=== PATIENT | male | born 1990 | race Caucasian/White ===

== ENCOUNTER 2018-05-06 10:51 | Emergency (ER) | payer BC ==
[2018-05-06 11:18] VITALS: BP 141/92
--- NOTE | 2018-05-06 11:45 | UC ---
Back Pain HPI - HPI Summary HPI Summary: Complains of right lower back pain radiating down into right leg. History of chronic back pain. Pain is worse with movement, bending. Better with sitting. Fever, cough, sore throat, CP, N/V/D, abdominal pain, change in urine, change in BM, urinary retention, incontinence. Medical history is current back pain. Denies IV drug use - History of Current Complaint Chief Complaint: UCLowerExtremity Stated Complaint: FOOT AND LEG PAIN Time Seen by Provider: 05/06/18 11:24 Hx Obtained From: Patient Onset/Duration: Sudden Onset Timing: Constant Severity Initially: Moderate Severity Currently: Moderate Pain Intensity: 7 Pain Scale Used: 0-10 Numeric Back Pain: Radiates To - Right leg Character: Sharp Aggravating Factor(s): Movement, Bending Alleviating Factor(s): Rest Associated Signs And Symptoms: Positive: Negative - Allergies/Home Medications Allergies/Adverse Reactions: Allergies Allergy/AdvReac Type Severity Reaction Status Date / Time No Known Allergies Allergy Verified 05/06/18 11:17 Home Medications: Home Medications diphenhydrAMINE HCl [Benadryl Allergy] 25 mg 05/06/18 [History] PMH/Surg Hx/FS Hx/Imm Hx - Surgical History Surgical History: None - Family History Known Family History: Positive: None - Social History Alcohol Use: Occasionally Substance Use Type: None Smoking Status (MU): Never Smoked Tobacco Review of Systems Constitutional: Negative Skin: Negative Eyes: Negative ENT: Negative Respiratory: Negative Cardiovascular: Negative Gastrointestinal: Negative Genitourinary: Negative Motor: Negative Neurovascular: Negative Neurological: Negative Psychological: Negative All Other Systems Reviewed And Are Negative: Yes Physical Exam - Summary Physical Exam Summary: Positive straight leg test on right side. Back nontender to palpation. No deformity, masses noted in spine. PMS intact distally on right lower extremity. Triage Information Reviewed: Yes Appearance: Well-Appearing Vital Signs: Initial Vital Signs Temp 97.7 F 05/06/18 11:15 Pulse 98 05/06/18 11:15 Resp 18 05/06/18 11:15 BP 141/92 05/06/18 11:15 Pulse Ox 97 05/06/18 11:15 Vital Signs Reviewed: Yes Eye Exam: Normal Neck exam: Normal Respiratory Exam: Normal Cardiovascular Exam: Normal Abdominal Exam: Normal Musculoskeletal Exam: Normal Neurological Exam: Normal Psychological Exam: Normal Skin Exam: Normal Back Pain Course/Dx - Course Course Of Treatment: Complains of right lower back pain radiating down into right leg. History of chronic back pain. Pain is worse with movement, bending. Better with sitting. Fever, cough, sore throat, CP, N/V/D, abdominal pain, change in urine, change in BM, urinary retention, incontinence. Medical history is current back pain. Denies IV drug use. Physical exam:Positive straight leg test on right side. Back nontender to palpation. No deformity, masses noted in spine. PMS intact distally on right lower extremity. Diagnosis likely sciatica. Rx for prednisone and valium 5mg x 6 tabs - Differential Dx/Diagnosis Provider Diagnoses: sciatica Discharge - Sign-Out/Discharge Documenting (check all that apply): Patient Departure All imaging exams completed and their final reports reviewed: Yes - Discharge Plan Condition: Stable Disposition: HOME Prescriptions: Diazepam TAB(*) [Valium TAB(*)] 5 mg PO TID PRN 2 Days #5 tab MDD 3 yabs PRN Reason: Pain predniSONE TAB* [Deltasone 20 MG TAB*] 40 mg PO DAILY 5 Days #5 tab Patient Education Materials: Sciatica (ED), Lumbar Radiculopathy (ED), Lower Back Exercises (ED) Forms: *Work Release Referrals: Fortunato Cotter MD [Primary Care Provider] - Chicho Mcneal MD [Medical Doctor] - Additional Instructions: Follow-up with orthopedics Dr. Castro if symptoms persist. - Billing Disposition and Condition Condition: STABLE Disposition: Home
== END 2018-05-06 12:02 | disposition home or self-care (01) ==
LOC: UCEAST 10:51
DX: M54.41 Lumbago with sciatica, right side (principal)
CPT/HCPCS: 99212; G0463

== ENCOUNTER 2018-09-10 13:29 | Emergency (ER) | payer BC ==
--- NOTE | 2018-09-10 14:46 | ED ---
Abdominal Pain/Male - HPI Summary HPI Summary: A 27 y/o male presents to 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 He rates his pain as a 5/10. He also reports some diarrhea and claims that sometimes he feels constipated. He claims that he has a Hx of gastritis. He denies fevers, vomiting or an abdominal SHx. He denies drug use, EtOH use or smoking. He lives alone and reports eating a lot of microwavable food. - History of Current Complaint Chief Complaint: EDAbdPain Stated Complaint: ABD PAIN Time Seen by Provider: 09/10/18 14:41 Hx Obtained From: Patient Onset/Duration: Sudden Onset, Lasting Weeks, Still Present Timing: Constant, Lasting Weeks Severity Initially: Moderate Severity Currently: Moderate Pain Intensity: 5 Pain Scale Used: 0-10 Numeric Location: Epigastric Radiates: No Character: Not Applicable Aggravating Factor(s): Nothing Alleviating Factor(s): Nothing Associated Signs And Symptoms: Positive: Constipation, Diarrhea - Allergies/Home Medications Allergies/Adverse Reactions: Allergies Allergy/AdvReac Type Severity Reaction Status Date / Time No Known Allergies Allergy Verified 09/10/18 10:34 PMH/Surg Hx/FS Hx/Imm Hx Endocrine/Hematology History: Denies: Hx Diabetes Cardiovascular History: Denies: Hx Hypertension, Hx Pacemaker/ICD History: Denies: Hx Renal Disease Sensory History: Denies: Hx Hearing Aid Psychiatric History: Denies: Hx Panic Disorder Infectious Disease History: No Infectious Disease History: Denies: Traveled Outside the [place] in Last 30 Days - Family History Known Family History: Positive: Hypertension, Diabetes - Social History Alcohol Use: Occasionally Substance Use Type: Reports: None Smoking Status (MU): Never Smoked Tobacco Review of Systems Negative: Fever Positive: Abdominal Pain, Diarrhea. Negative: Vomiting All Other Systems Reviewed And Are Negative: Yes Physical Exam - Summary Physical Exam Summary: Appearance: Well appearing, no pain distress Skin: warm, dry, reflects adequate perfusion Head/face: normal Eyes: EOMI, CRISTINA ENT: mucous membranes moist Neck: supple, non-tender Respiratory: CTA, breath sounds present Cardiovascular: RRR, pulses symmetrical Abdomen: non-tender, soft, no reproducible pain, normal bowel sounds, no McBurney's point tenderness. Bowel Sounds: present Musculoskeletal: normal, strength/ROM intact Neuro: normal, sensory motor intact, A&Ox3 Triage Information Reviewed: Yes Vital Signs On Initial Exam: Initial Vitals Temp Pulse Resp BP Pulse Ox 98.3 F 97 16 162/101 96 09/10/18 13:58 09/10/18 13:58 09/10/18 13:58 09/10/18 13:58 09/10/18 13:58 Vital Signs Reviewed: Yes Diagnostics - Vital Signs Vital Signs Temp Pulse Resp BP Pulse Ox 09/10/18 13:58 98.3 F 97 16 162/101 96 - Laboratory Result Diagrams: 09/10/18 15:01 09/10/18 15:01 Lab Statement: Any lab studies that have been ordered have been reviewed, and results considered in the medical decision making process. - Radiology abdomen x-ray Radiology Interpretation Completed By: Radiologist Summary of Radiographic Findings: Fecal stasis. Stool in the rectum and in the right colon. ED provider has reviewed this imaging report. Abdominal Pain Fem Course/Dx - Course Course Of Treatment: Nurse's notes reviewed. Generalized discomfort without focality. History for constipation, confirmed by x-ray. Laboratories benign. Treat symptomatically. Follow-up family DrAnnika - Diagnoses Differential Diagnosis/HQI/PQRI: Bowel Obstruction, Constipation, Diverticulitis , Pancreatitis, Peptic Ulcer Disease Provider Diagnoses: Generalized abdominal pain, Constipation Discharge - Sign-Out/Discharge Documenting (check all that apply): Patient Departure - DC - Discharge Plan Condition: Improved Disposition: HOME Prescriptions: Bisacodyl SUPP* [Dulcolax Supp*] 10 mg SC DAILY PRN #5 supp PRN Reason: Constipation Hyoscyamine Sulfate [Levsin/Sl] 0.125 mg SL Q6H PRN #30 sub PRN Reason: cramping Polyethylene Glycol 3350 BTL* [Miralax] 17 gm PO TID PRN #1 btl PRN Reason: Constipation Patient Education Materials: Constipation (ED), High Fiber Diet (ED) Referrals: Fortunato Cotter MD [Primary Care Provider] - Additional Instructions: Call today to schedule follow-up with your primary care physician. Natural fruit juices such as apple or prune may help. High fiber diet. Return if worse , fever, increased pain or other concerns - Billing Disposition and Condition Condition: IMPROVED Disposition: Home - Attestation Statements Document Initiated by Scribe: Yes Documenting Scribe: Claude Spence Provider For Whom Scribe is Documenting (Include Credential): Parag Vazquez MD Scribe Attestation: I, Claude Spence, scribed for Parag Vazquez MD on 09/10/18 at 1721. Scribe Documentation Reviewed: Yes Provider Attestation: The documentation as recorded by the patriciaibe, Claude Spence accurately reflects the service I personally performed and the decisions made by me, Parag Vazquez MD Status of Scribe Document: Viewed
[2018-09-10] MEDS ORDERED: Famotidine TAB* 20 MG PO ONE (14:49)
[2018-09-10] MEDS ORDERED: Hyoscyamine TAB* 0.125 MG PO ONE (14:49)
[2018-09-10 15:12] LABS: ABS Basophils 0.1 10^3/ul (0-0.2); ABS Eosinophils 0.1 10^3/ul (0-0.6); ABS Lymphocytes 2.6 10^3/ul (1.0-4.8); ABS Monocytes 0.5 10^3/ul (0-0.8); ABS Neutrophils 5.1 10^3/ul (1.5-7.7); ABS Nucleated RBC 0 10^3/ul; Eosinophil % 0.8 %; Hematocrit 45 % (42-52); Hemoglobin 15.3 g/dl (14.0-18.0); Lymphocyte % 31.6 %; Mean Corpuscular HGB Conc 34 g/dl (31-36); Mean Corpuscular Hemoglobin 30 pg (27-31); Mean Corpuscular Volume 87 fL (80-94); Nucleated Red Blood Cells % 0.1; Platelet Count 322 10^3/ul (150-450); Red Blood Count 5.12 10^6/ul (4.00-5.40); Red Cell Distribution Width 12 % (10.5-15); White Blood Count 8.4 10^3/ul (3.5-10.8)
[2018-09-10 15:33] LABS: ALT 23 U/L (7-52); AST 14 U/L (13-39); Albumin 4.7 g/dL (3.2-5.2); Albumin/Globulin Ratio 1.9 (1-3); Alkaline Phosphatase 73 U/L (34-104); Anion Gap 7 mmol/L (2-11); BUN/Creatinine Ratio 15.9 (8-20); Blood Urea Nitrogen 14 mg/dL (6-24); C Reactive Protein 1.36 mg/L (<8.01); CO2 Carbon Dioxide 27 mmol/L (22-32); Calcium 9.6 mg/dL (8.6-10.3); Chloride 106 mmol/L (101-111); EGFR Non-African American 103.1 (>60); Globulin 2.5 g/dL (2-4); Glucose 94 mg/dL (70-100); Potassium 4.3 mmol/L (3.5-5.0); Sodium 140 mmol/L (135-145); Total Protein 7.2 g/dL (6.4-8.9)
[2018-09-10 15:58] VITALS: BP 137/94
== END 2018-09-10 15:58 | disposition home or self-care (01) ==
LOC: ED 13:29
DX: R10.84 Generalized abdominal pain (principal); K59.00 Constipation, unspecified
CPT/HCPCS: 36415; 74018; 80053; 83605; 83690; 85025; 86140; 99283; A9270-GY

== ENCOUNTER 2019-01-07 12:09 | Emergency (ER) | payer BC ==
[2019-01-07 12:19] VITALS: BP 142/87
--- NOTE | 2019-01-07 13:49 | UC ---
Headache HPI - HPI Summary HPI Summary: ONSET YESTERDAY MORNING OF DIFFUSE HEADACHE DESCRIBED A TIGHTNESS/PRESSURE. HE HAS SOME ASSOCIATED PHOTOPHOBIA AND FATIGUE BUT DENIES ANY FEVER, NAUSEA OR VISUAL DISTURBANCES. PATIENT STATES HE IS NOT A HEADACHE PERSON. HAS NOT TAKEN ANY IBUPROFEN. REPORTS HE RECENTLY HAS BEEN WAKING UP FEELING FATIGUED DESPITE HAVING A FULL NIGHT'S SLEEP. NO RECENT COUGH OR URI SYMPTOMS HOWEVER UPON FURTHER QUESTIONING PATIENT ADMITS THAT HE IS CHRONICALLY CONGESTED AND BREATHES THROUGH HIS MOUTH WHEN HE SLEEPS. - History Of Current Complaint Chief Complaint: UCHeadache Stated Complaint: SEVERE HEADACHE Time Seen by Provider: 01/07/19 12:25 Hx Obtained From: Patient Onset/Duration: Gradual Onset, Lasting Days, Still Present Onset Of Symptoms: Gradual Currently Pain Is: Moderate Pain Intensity: 6 Pain Scale Used: 0-10 Numeric Timing: Constant Character: Pressure Location of Headache: Diffuse Aggravating Factor(s): Nothing Allevating Factor(s): Nothing Associated Signs And Symptoms: Positive: Sinus Pressure. Negative: Dizziness, Nausea, Vomiting, Fever, Visual Changes - Allergies/Home Medications Allergies/Adverse Reactions: Allergies Allergy/AdvReac Type Severity Reaction Status Date / Time No Known Allergies Allergy Verified 01/07/19 12:19 Home Medications: Home Medications Aspirin/Acetaminophen/Caffeine [Excedrin Migraine Caplet] 1 each PO DAILY PRN [History Confirmed 01/07/19] PMH/Surg Hx/FS Hx/Imm Hx Previously Healthy: Yes - Surgical History Surgical History: None - Family History Known Family History: Positive: Hypertension, Diabetes - Social History Alcohol Use: Rare Substance Use Type: None Smoking Status (MU): Never Smoked Tobacco Review of Systems All Other Systems Reviewed And Are Negative: Yes Constitutional: Positive: Fatigue Eyes: Positive: Photophobia ENT: Positive: Sinus Congestion Respiratory: Positive: Negative Cardiovascular: Positive: Negative Gastrointestinal: Positive: Negative Neurological: Positive: Headache Physical Exam Triage Information Reviewed: Yes Appearance: Well-Appearing, No Pain Distress, Well-Nourished Vital Signs: Initial Vital Signs Temp 97.3 F 01/07/19 12:14 Pulse 91 01/07/19 12:14 Resp 16 01/07/19 12:14 BP 142/87 01/07/19 12:14 Pulse Ox 97 01/07/19 12:14 Vital Signs Reviewed: Yes Eyes: Positive: Conjunctiva Clear ENT: Positive: Hearing grossly normal, Pharynx normal, Nasal congestion, TMs normal, Sinus tenderness Neck: Positive: Supple, Nontender, No Lymphadenopathy Respiratory Exam: Normal Cardiovascular Exam: Normal Abdomen Description: Positive: Soft Musculoskeletal: Positive: No Edema Neurological: Positive: Alert, Other: - CN II-XII GROSSLY INTACT BILATERALLY. RAPID ALTERNATING MOVEMENTS INTACT. NEG PRONATOR DRIFT. NEG ROMBERG. 5/5 STRENGTH. HEEL TO TEMPLE INTACT BILATERALLY. TANDEM GAIT INTACT. FINGER TO NOSE INTACT. Psychological: Positive: Age Appropriate Behavior Skin: Negative: Rashes Headache Course/Dx - Course Course Of Treatment: DURING THE ENCOUNTER PATIENT WAS FOUND TO HAVE MILD TENDERNESS OVERLYING HIS MAXILLARY SINUSES. HIS VOICE SOUNDED CONGESTED AND WHEN ASKED TO BREATHE THROUGH HIS NARES HE WAS SURPRISED TO FIND THAT HE COULD NOT MOVE MUCH AIR THROUGH EITHER SIDE. 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 HE MAY HAVE CONCURRENT ALLERGY SYMPTOMS WELL. THIS MAY BE CONTRIBUTING TO HIS RECENT HEADACHE AND FATIGUE. WILL TRY A SHORT COURSE OF PREDNISONE WELL A NASAL STEROID AND AN OTC ANTIHISTAMINE DAILY. HAVE ENCOURAGED HIM TO CALL ENT TO SCHEDULE AN APPOINTMENT FOR EVALUATION. - Differential Dx/Diagnosis Provider Diagnosis: Headache, Sinusitis Discharge - Sign-Out/Discharge Documenting (check all that apply): Patient Departure All imaging exams completed and their final reports reviewed: No Studies - Discharge Plan Condition: Stable Disposition: HOME Prescriptions: Fluticasone NASAL SPRAY 50MCG* [Flonase NASAL SPRAY 50MCG*] 2 spray BOTH NARES DAILY #1 btl predniSONE TAB* [Deltasone 20 MG TAB*] 40 mg PO DAILY #10 tab Patient Education Materials: Sinusitis (ED), General Headache (ED) Forms: *Work Release Referrals: Fortunato Cotter MD [Primary Care Provider] - 1 Week Additional Instructions: I SUSPECT THAT YOUR HEADACHE SYMPTOMS MAY BE RELATED TO CHRONIC SINUSITIS. BE SURE TO STAY WELL-HYDRATED. TRY FLONASE 2 SPRAYS IN EACH SIDE OF YOUR NOSE ONCE DAILY AT NIGHT BEFORE YOU GO TO SLEEP. I WOULD ALSO RECOMMEND YOU TAKE AN OTC ANTIHISTAMINE SUCH CLARITIN OR ZYRTEC ONCE DAILY IN THE MORNING TO HELP WITH ANY ALLERGIC COMPONENT TO YOUR SYMPTOMS. WILL ALSO GIVE PREDNISONE ONCE DAILY FOR 5 DAYS WHICH ALSO HELPS WITH ALLERGIC SYMPTOMS WELL OVERALL INFLAMMATION AND SWELLING. YOU WOULD LIKELY BENEFIT FROM ENT EVALUATION. CALL THE NUMBER BELOW TO SCHEDULE AN APPOINTMENT. GO TO THE ED WITHOUT FAIL IF YOU DEVELOP UNEQUAL PUPILS, VISUAL DISTURBANCE, GAIT INSTABILITY, SPEECH DIFFICULTY, NAUSEA/VOMITING, WORSENING HEADACHE, DIZZINESS, CONFUSION, WEAKNESS OR ANY OTHER CONCERNING SYMPTOMS. [facility] [place] [address] [facility] [phone] IBUPROFEN MAX DOSE: 600MG (3 TABS) EVERY 6 HRS OR 800MG (4 TABS) EVERY 8 HRS OR NAPROXEN MAX DOSE: 440MG (2 TABS) EVERY 12 HRS TYLENOL MAX DOSE: 1000MG (2 EXTRA STRENGTH TABS) EVERY 8 HRS OR 650MG (2 REGULAR TABS) EVERY 6 HRS - Billing Disposition and Condition Condition: STABLE Disposition: Home
== END 2019-01-07 13:19 | disposition home or self-care (01) ==
LOC: UCEAST 12:09
DX: R51 Headache (principal); J32.9 Chronic sinusitis, unspecified; R53.83 Other fatigue
CPT/HCPCS: 99212; G0463

== ENCOUNTER 2019-05-14 15:09 | Emergency (ER) | payer BC ==
--- OUTSIDE RECORDS SUMMARY | 2019-05-14 15:15 | XMS REPORT | Continuity of Care Document ---
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 Onset: 11/09/2011 Adult health examination Fortunato Cotter M.D. Onset: 09/07/2011 Social History Type Date Description Comments Sex Unknown ETOH Use Denies alcohol use Tobacco Use Start: Unknown Patient has never smoked Recreational Drug Use Denies Drug Use Exercise Type/Frequency Exercises regularly feels his job is very active Sun Exposure Uses sunscreen Seat Belt/Car Seat Always uses seat belt Allergies, Adverse Reactions, Alerts Description No Known Drug Allergies Medications Description No Active Medications Immunizations CPT Code Status Date Vaccine Reaction Lot # [id number] Given 08/23/2016 Influenza Vac, [place]riv[place], [place] [id number] Given 07/11/2013 DO Not Use Split Influenza Virus [id number] Vaccine 96347 Given 06/06/2011 DO Not Use Split Influenza Virus no reaction noted [id number] Vaccine Vital Signs Date Vital Result Comment 04/27/2019 4:18pm BP Systolic 136 mmHg BP Diastolic 76 mmHg Heart Rate 72 /min Body Temperature 98.1 F Respiratory Rate 16 /min Height 73.5 inches 6'1.50" Weight 214.00 lb BMI (Body Mass Index) 27.8 kg/m2 Right Visual Acuity Distance 20/20 with eyeglasses Left Visual Acuity Distance 20/20 with eyeglasses 09/10/2017 10:26am BP Systolic 124 mmHg BP Diastolic 84 mmHg Heart Rate 84 /min Body Temperature 98.2 F Respiratory Rate 16 /min Height 73.5 inches 6'1.50" Weight 210.25 lb BMI (Body Mass Index) 27.4 kg/m2 Results Test Date Facility Test Result H/L Range Note Ua - Non Micro ([facility]) 04/27/2019 [facility] Appearance clear (607)- - Color yellow Glucose, Urine ([facility]/CTX) negative Bilirubin negative Ketones negative SP Grav 1.025 Blood negative PH 6.5 Protein negative Urobil 0.2 Nitrite negative Leukocytes ([facility]/Centrex) negative Procedures Description No Information Available Medical Devices Description No Information Available Encounters Description No Information Available Assessments Date Code Description Provider 04/27/2019 Z00.00 Encounter for general adult medical Sandeep Melchor examination without abnormal findings 04/27/2019 Z00.00 Encounter for general adult medical CONY Pickett examination without abnormal findings 04/27/2019 Z02.4 Encounter for examination for driving Jessica Melchor license Plan of Treatment Future Appointment(s):05/09/2019 9:30 am - Fortunato Cotter M.D. at [facility]404/27/2019 - Veronika Ghotra, [id number] Encounter for general adult medical examination without abnormal findingsNew Labs:CBC Electronic ([facility] New), Ordered : 04/27/19Comp Metabolic-[facility], Ordered: 04/27/19Lipid Panel-[facility], Ordered: 04/27/19CBC Electronic-[facility], Ordered: Comp Metabolic-[facility], Ordered: 04/27/19Lipid Panel[facility] , Ordered: 04/27/19Ua - Non Micro ([facility]), Ordered: 04/27/19AllNew Medication:No Active Medications -Comments:PCMHMedication Management Patient Understands medications he's taking? Yes Are there Barriers to Adherence? No Has the patient been asked about herbal supplements and therapies, and OTC meds ? Yes Care Plan1. Patient has been queried about patient's goals/ preferences and functional/lifestyle goals at relevant visits. Yes If relevant, describe: N/A2. Treatment goals as explained to the patient: above3. Are there barriers to meeting treatment goals? No If Yes, please describe:4. Self-Management goals as described to the patient: Yes As always, we strongly encourage a healthy diet and making physical activity a part of your every day life. If you have questions about how or where to start, please contact the office. Functional Status Description No Information Available Mental Status Description No Information Available Referrals Description No Information Available
--- OUTSIDE RECORDS SUMMARY | 2019-05-14 15:15 | XMS REPORT | Continuity of Care Document ---
:1990 External Reference #:[id number] Author Name Jessica Melchor Address [address] [place] [address] Care Team Providers Name Role Phone Fortunato Cotter MD - Family Care Team Information Oil Field Tester [phone] Medicine Problems Active Problems Provider Date Disorder [...] Code Status Date Vaccine Reaction Lot # [id number] Given 08/23/2016 Influenza Vac, [place]riv[place], [place] [id number] Given 07/11/2013 DO Not Use Split Influenza Virus [id number] Vaccine 66825 Given 06/06/2011 DO Not Use Split Influenza Virus no reaction noted [id number] Vaccine Vital Signs Date Vital Result Comment [...] BMI (Body Mass Index) 27.4 kg/m2 Results Description No Information Available Procedures Description No Information Available Medical Devices Description No Information Available Encounters Description No Information Available Assessments Date Code Description Provider 04/27/2019 Z00.00 Encounter for general adult medical Katie Sandeep Infante -Mine examination without abnormal findings 04/27/2019 Z00.00 Encounter for general adult medical CONY Pickett examination without abnormal findings Plan of Treatment Future Appointment(s):05/09/2019 9:30 am - Fortunato Cotter M.D. at [id number]/27/2019 - Veronika Ghotra, PAZ00.00 Encounter for general adult medical examination without abnormal findingsNew Labs:CBC Electronic ([facility] New), Ordered : 04/27/19Comp Metabolic-[facility], Ordered: 04/27/19Lipid Panel-[facility], Ordered: 04/27/19Ua - Non Micro ([facility]), Ordered: 04/27/19CBC Electronic-[facility], Ordered: 04/27/19Comp Metabolic-[facility], Ordered: 04/27/19Lipid Panel-[facility], Ordered: 04/27/19AllNew Medication:No Active Medications -Comments:PCMHMedication Management Patient Understands medications he's taking? Yes Are there Barriers to Adherence? No Has the patient been asked about herbal supplements and therapies, and OTC meds? Yes Care Plan1. Patient has been queried about patient's goals/preferences and functional/lifestyle goals at relevant visits. Yes If relevant, describe: N/A2. Treatment goals as explained to the patient: above3. Are there barriers to meeting treatment goals? No If Yes , please describe:4. Self-Management goals as described to [...]
[2019-05-14 15:37] VITALS: BP 148/89
--- NOTE | 2019-05-14 15:46 | UC ---
Throat Pain/Nasal Yazan HPI - HPI Summary HPI Summary: Patient is a 28yo male presenting with c/o headache x4 days and sore throat x1 day. Describes headache as "throbbing all over." States his headache is a constant 8/10 since it began. Notes photophobia. Notes dark room and rest help alleviate pain. He states excedrin always gets rid of his headaches but it has not helped this time. Denies worst headache of his life, but is the longest lasting. Last dose of excedrin was last night. He describes his sore throat as scratchy and admits to ill contacts as work. Denies ear pain, itchy/watery eyes , cough, nasal congestion/discharge, and sinus pain. Denies SOB, wheezing, or difficulty breathing. Denies abdominal pain, n/v/d. Denies urinary symptoms. Denies fever and chills. - History of Current Complaint Chief Complaint: UCRespiratory Stated Complaint: HEADACHE, SORE THROAT Time Seen by Provider: 05/14/19 15:46 Hx Obtained From: Patient Onset/Duration: Gradual Onset, Lasting Days Severity: Moderate Pain Intensity: 8 Pain Scale Used: 0-10 Numeric - Allergies/Home Medications Allergies/Adverse Reactions: Allergies Allergy/AdvReac Type Severity Reaction Status Date / Time No Known Allergies Allergy Verified 01/07/19 12:19 PMH/Surg Hx/FS Hx/Imm Hx - Surgical History Surgical History: None - Family History Known Family History: Positive: None, Hypertension, Diabetes - Social History Alcohol Use: None Substance Use Type: None Smoking Status (MU): Never Smoked Tobacco Review of Systems All Other Systems Reviewed And Are Negative: No Constitutional: Positive: Negative Eyes: Positive: Photophobia. Negative: Blurred Vision, Diplopia ENT: Positive: Sore Throat. Negative: Ear Ache, Nasal Discharge, Sinus Congestion, Sinus Pain/Tenderness Respiratory: Negative: Shortness Of Breath, Cough Cardiovascular: Negative: Palpitations, Chest Pain Gastrointestinal: Positive: Negative. Negative: Abdominal Pain, Vomiting, Diarrhea, Nausea Genitourinary: Positive: Negative. Negative: Dysuria, Frequency, Urgency Neurological: Positive: Headache. Negative: Paresthesia, Numbness Physical Exam Triage Information Reviewed: Yes Appearance: Well-Appearing, No Pain Distress, Well-Nourished Vital Signs: Initial Vital Signs Temp 98.2 F 05/14/19 15:34 Pulse 87 05/14/19 15:34 Resp 18 05/14/19 15:34 BP 148/89 05/14/19 15:34 Pulse Ox 99 05/14/19 15:34 Laboratory Tests 05/14/19 16:05 Group A Strep Rapid Negative Vital Signs Reviewed: Yes Eyes: Positive: Conjunctiva Clear ENT: Positive: TMs normal. Negative: Nasal drainage, TM bulging, TM dull, TM red, Tonsillar swelling, Tonsillar exudate, Hoarse voice Neck exam: Normal Neck: Positive: Supple, Nontender, No Lymphadenopathy Respiratory Exam: Normal Respiratory: Positive: Lungs clear, Normal breath sounds, No respiratory distress Cardiovascular Exam: Normal Cardiovascular: Positive: RRR Neurological Exam: Normal Throat Pain/Nasal Course/Dx - Course Course Of Treatment: Discussed with patient to make sure to stay hydrated and avoid factors that further aggravate your headache. Patient told he may continue to take excedrin migraine as directed for pain relief. Patient directed to follow up with your primary care physician within the next week for elevated blood pressure readings. Patient informed to return or follow up with your primary care physician if his sore throat persists, he experiences a fever, or new symptoms arise. Also informed patient to return or go to the emergency department if headache symptoms worsen, he experiences nausea, vomiting, or changes in vision or balance occur. Patient notes already feeling better since arrival, voiced understanding, and agreed to treatment plan. - Differential Dx/Diagnosis Provider Diagnosis: Pharyngitis, Tension headache Discharge ED - Sign-Out/Discharge Documenting (check all that apply): Patient Departure All imaging exams completed and their final reports reviewed: No Studies - Discharge Plan Condition: Stable Disposition: HOME Patient Education Materials: Pharyngitis (ED), Tension Headache (ED) Forms: *Work Release Referrals: Fortunato Cotter MD [Primary Care Provider] - Additional Instructions: Make sure to stay hydrated and avoid factors that further aggravate your headache. You may continue to take excedrin migraine as directed for pain relief. Follow up with your primary care physician within the next week for elevated blood pressure readings. Return or follow up with your primary care physician if your sore throat persists, you experience a fever, or new symptoms arise. Return or go to the emergency department if headache symptoms worsen, you experience nausea, vomiting, or changes in vision or balance. - Billing Disposition and Condition Condition: STABLE Disposition: Home
[2019-05-14] MEDS ORDERED: Ketorolac *IM* INJ* 60 MG/2 ML VIAL IM ONE (15:56)
== END 2019-05-14 16:38 | disposition home or self-care (01) ==
LOC: UCEAST 15:09
DX: J02.9 Acute pharyngitis, unspecified (principal); G44.209 Tension-type headache, unspecified, not intractable
CPT/HCPCS: 87651; 96372; 99211; G0463; J1885

== ENCOUNTER 2019-08-24 06:32 | Emergency (ER) | payer BC ==
[2019-08-24] MEDS ORDERED: NS 0.9% 1000 ML** 1,000 ML IV ONE (06:44)
[2019-08-24] MEDS ORDERED: Ondansetron INJ* 2 MG/ML VIAL IV ONE (06:44)
--- NOTE | 2019-08-24 06:45 | ED ---
Complex/Multi-Sys Presentation - HPI Summary HPI Summary: Pt. is a 28 y.o male who presents to the ER via EMS for dizziness, weakness, nausea that started just prior to arrival. Pt. states he went to work this morning at [employer] when he started to feel unwell. Pt. states he developed weakness, nausea, diaphoresis. Pt. notes ongoing cough. He notes chronic back pain without change. Pt. notes he did not eat breakfast and only ate a peanut butter sandwich for dinner last night. Pt. denies vomiting, diarrhea, urinary sxs. Denies past hx. Sxs are moderate in severity. No current modifying factors. - History Of Current Complaint Time Seen by Provider: 08/24/19 06:34 Hx Obtained From: Patient - Allergies/Home Medications Allergies/Adverse Reactions: Allergies Allergy/AdvReac Type Severity Reaction Status Date / Time No Known Allergies Allergy Verified 08/24/19 06:45 Home Medications: Home Medications NK [No Home Medications Reported] 08/24/19 [History Confirmed 08/24/19] PMH/Surg Hx/FS Hx/Imm Hx Previously Healthy: Yes Endocrine/Hematology History: Denies: Hx Diabetes Cardiovascular History: Denies: Hx Hypertension, Hx Pacemaker/ICD History: Denies: Hx Renal Disease Sensory History: Denies: Hx Hearing Aid Psychiatric History: Denies: Hx Panic Disorder Infectious Disease History: No Infectious Disease History: Denies: Traveled Outside the [place] in Last 30 Days - Family History Known Family History: Positive: None, Hypertension, Diabetes, Non-Contributory - Social History Occupation: Employed Full-time Lives: With Family Alcohol Use: None Substance Use Type: Reports: None Smoking Status (MU): Never Smoked Tobacco Review of Systems Positive: Chills Eyes: Negative Positive: Ear Ache Cardiovascular: Negative Negative: Palpitations, Chest Pain Positive: Cough. Negative: Shortness Of Breath Positive: Abdominal Pain, Nausea. Negative: Vomiting, Diarrhea Genitourinary: Negative Negative: dysuria Positive: Myalgia Skin: Negative Positive: Weakness. Negative: Syncope All Other Systems Reviewed And Are Negative: Yes Physical Exam Triage Information Reviewed: Yes Vital Signs On Initial Exam: Initial Vitals Temp Pulse Resp BP Pulse Ox 97.5 F 94 16 116/79 100 08/24/19 06:35 08/24/19 06:35 08/24/19 06:35 08/24/19 06:35 08/24/19 06:35 Vital Signs Reviewed: Yes Appearance: Positive: Well-Appearing - Pt. sitting up in bed in NAD. Father present. Skin: Positive: Warm, Dry Head/Face: Positive: Normal Head/Face Inspection Eyes: Positive: Normal, EOMI, CRISTINA ENT: Positive: Pharynx normal, TMs normal, Other - Mouth is dry and lips are chapped.. Negative: Tonsillar swelling, Tonsillar exudate Neck: Positive: Supple Respiratory/Lung Sounds: Positive: Clear to Auscultation, Breath Sounds Present Cardiovascular: Positive: Normal, RRR Abdomen Description: Positive: Nontender, Soft Musculoskeletal: Positive: Normal, Strength/ROM Intact Neurological: Positive: Normal, CN Intact II-III Psychiatric: Positive: Anxious Procedures - Sedation Patient Received Moderate/Deep Sedation with Procedure: No Diagnostics - Vital Signs Vital Signs Temp Pulse Resp BP Pulse Ox 08/24/19 06:35 97.5 F 94 16 116/79 100 - Laboratory Result Diagrams: 08/24/19 06:44 08/24/19 06:44 Lab Statement: Any lab studies that have been ordered have been reviewed, and results considered in the medical decision making process. Complex Multi-Symp Course/Dx Course Of Treatment: Pt. presenting with likely near syncopal episode. Mildy tachycardic. Appears dehydrated on exam. Pt. started on IV fluids. ECG done at 0710 shows a sinus rhythm of 88bpm, normal aixs, appropriate intervals, no STEMI. Labs are unremarkable. U/A negative. CXR negative for acute findings per radiology. Orthostatic VS normal as documented. Pt. ate a bowl of cereal. On re-exam pt. is feeling much better. Will dc home. Advised to increase fluid intake and to eat regular meals and snacks. To f.u with pcp within one week and will return to er if sxs change or worsen. Pt. understands and agrees with plan. - Diagnoses Provider Diagnoses: Near syncope, Dehydration Discharge ED - Sign-Out/Discharge Documenting (check all that apply): Patient Departure - Discharge Plan Condition: Improved Disposition: HOME Patient Education Materials: Dehydration (ED), Near Syncope (ED) Forms: *Work Release Referrals: Fortunato Cotter MD [Primary Care Provider] - Additional Instructions: Please follow up with your PCP for recheck within one week Increase fluids and rest Recommend eating three meals a day with small snacks in between Return to ER if symptoms change or worsen - Billing Disposition and Condition Condition: IMPROVED Disposition: Home - Attestation Statements Provider Attestation: I was available for consultation for this patient. I did not evaluate the patient or participate in any medical decision making or disposition decisions unless I am specifically named in the chart as having consulted on the patient. If I have consulted on the patient, please see my own ED note on the patient encounter. Jroge Faith MD
[2019-08-24 07:11] LABS: ABS Eosinophils 0.1 10^3/ul (0-0.6); ABS Lymphocytes 1.5 10^3/ul (1.0-4.8); ABS Monocytes 0.5 10^3/ul (0-0.8); ABS Neutrophils 8.4 10^3/ul (1.5-7.7); Eosinophil % 1.1 %; Hematocrit 45 % (42-52); Hemoglobin 15.5 g/dL (14.0-18.0); Lymphocyte % 14.2 %; Mean Corpuscular HGB Conc 35 g/dL (31-36); Mean Corpuscular Hemoglobin 30 pg (27-31); Mean Corpuscular Volume 87 fL (80-94); Mean Platelet Volume 7.2 fL (7.4-10.4); Platelet Count 310 10^3/uL (150-450); Red Blood Count 5.16 10^6 /uL (4.18-5.48); Red Cell Distribution Width 12 % (10-15); White Blood Count 10.6 10^3/uL (3.5-10.8)
[2019-08-24 07:29] LABS: Albumin 4.4 g/dL (3.2-5.2); Albumin/Globulin Ratio 1.5 (1-3); BUN/Creatinine Ratio 12.9 (8-20); C Reactive Protein 5.36 mg/L (<8.01); Calcium 9.3 mg/dL (8.6-10.3); EGFR African American 105.7 (>60); EGFR Non-African American 87.3 (>60); Influenza A Molecular NEGATIVE (Negative); Influenza B Molecular NEGATIVE (Negative); Potassium 4.2 mmol/L (3.5-5.0); Total Bilirubin 0.5 mg/dL (0.2-1.0); Total Protein 7.4 g/dL (6.4-8.9)
[2019-08-24 07:54] LABS: Urine Appearance Cloudy; Urine Bilirubin Negative (Negative); Urine Blood Negative (Negative); Urine Color Yellow; Urine Glucose Negative (Negative); Urine Ketones Negative (Negative); Urine Nitrite Negative (Negative); Urine Protein 1+(30 mg/dL) (Negative); Urine Urobilinogen Negative (Negative)
[2019-08-24 07:58] LABS: Urine Bacteria Absent (Absent); Urine Red Blood Cell Trace(0-2/hpf) (Absent); Urine Squamous Epithelial Cell Present (Absent); Urine White Blood Cell Trace(0-5/hpf) (Absent)
[2019-08-24 08:30] VITALS: BP 109/82
== END 2019-08-24 08:29 | disposition home or self-care (01) ==
LOC: ED 06:32
DX: R55 Syncope and collapse (principal); E86.0 Dehydration
CPT/HCPCS: 36415; 71046; 80053; 81003; 81015; 85025; 86140; 87086; 93005; 96361; 96374; 99283; J2405

== ENCOUNTER 2019-10-20 11:07 | Emergency (ER) | payer BC ==
[2019-10-20 11:24] VITALS: BP 128/100
--- NOTE | 2019-10-20 11:52 | UC ---
Back Pain HPI - HPI Summary HPI Summary: PATIENT REPORTS HISTORY OF CHRONIC LOW BACK PAIN AFTER A WORK INJURY 5 YEARS AGO. STATES THAT THE PAIN COMES AND GOES AND HAS NEVER COMPLETELY RESOLVED. HAD X-RAYS DONE HERE IN THE UC AFTER THE INITIAL INJURY AND HAD MILD DJD AND OA BUT HE HAS HAD NO OFFICIAL MEDICAL FOLLOW-UP OR IMAGING SINCE THEN. STATES THAT FOR THE PAST FEW DAYS THE PAIN HAS BEEN GETTING WORSE. NO NEW DISCRETE INJURY. HE IS HAVING DIFFICULTY SLEEPING DUE TO THE PAIN. 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 HE DENIES ANY SADDLE ANESTHESIA OR LOSS OF BOWEL/BLADDER CONTROL. STATES HE HAS INTERMITTENT PARESTHESIAS IN HIS RIGHT LEG BUT THIS HAS BEEN THERE FOR OVER A YEAR. - History of Current Complaint Chief Complaint: UCBackPain Stated Complaint: BACK PAIN Time Seen by Provider: 10/20/19 11:10 Hx Obtained From: Patient Onset/Duration: Gradual Onset, Lasting Days, Still Present Timing: Constant Severity Initially: Moderate Severity Currently: Moderate Pain Intensity: 6 Pain Scale Used: 0-10 Numeric Back Pain: Is Discrete @ - LOW BACK Character: Sharp Aggravating Factor(s): Movement Alleviating Factor(s): Rest, Position Associated Signs And Symptoms: Negative: Swelling, Redness, Weakness, Numbness, Tingling, Bladder Incontinence, Bowel Incontinence - Allergies/Home Medications Allergies/Adverse Reactions: Allergies Allergy/AdvReac Type Severity Reaction Status Date / Time No Known Allergies Allergy Verified 10/20/19 11:24 PMH/Surg Hx/FS Hx/Imm Hx Previously Healthy: Yes - Surgical History Surgical History: None - Family History Known Family History: Positive: Hypertension, Diabetes, Non-Contributory - Social History Alcohol Use: None Substance Use Type: None Smoking Status (MU): Never Smoked Tobacco Review of Systems All Other Systems Reviewed And Are Negative: Yes Constitutional: Positive: Negative Skin: Positive: Negative Respiratory: Positive: Negative Cardiovascular: Positive: Negative Gastrointestinal: Positive: Negative Musculoskeletal: Positive: Arthralgia, Decreased ROM, Myalgia Physical Exam Triage Information Reviewed: Yes Appearance: Well-Appearing, Well-Nourished, Pain Distress - MODERATE Vital Signs: Initial Vital Signs Temp 98 F 10/20/19 11:19 Pulse 110 10/20/19 11:19 Resp 17 10/20/19 11:19 BP 128/100 10/20/19 11:19 Pulse Ox 100 10/20/19 11:19 Vital Signs Reviewed: Yes Eyes: Positive: Conjunctiva Clear ENT: Positive: Hearing grossly normal Neck: Positive: Supple Respiratory: Positive: No respiratory distress, No accessory muscle use Cardiovascular: Positive: Pulses Normal Abdomen Description: Positive: Soft Musculoskeletal: Positive: No Edema, ROM Limited @ - BACK, Other: - NO TENDERNESS OVER SPINE OR PARASPINOUS MUSCLES Neurological: Positive: Alert Psychological: Positive: Age Appropriate Behavior Skin: Negative: Rashes Diagnostics - Radiology LUMBAR SPINE XRAYS Radiology Interpretation Completed By: Radiologist Summary of Radiographic Findings: MILD DEGENERATIVE DISC DISEASE. Back Pain Course/Dx - Course Course Of Treatment: L-SPINE XRAYS TODAY AGAIN SHOW MILD DJD BUT NO ACUTE BONY INJURY. PHYSICAL THERAPY REFERRAL PROVIDED. SHORT COURSE OF HYDROCODONE/APAP RX. DISCUSSED WITH PT THAT THIS IS NOT A GOOD SNF SOLUTION AND HE VERBALIZES UNDERSTANDING. STATES HE WILL CALL ORTHO/SPORTS MED TODAY FOR F/U. HE WILL LIKELY BENEFIT FROM AN MRI. ADVISED TO GO TO THE ER WITH ANY WORSENING SYMPTOMS. - Differential Dx/Diagnosis Provider Diagnosis: Acute exacerbation of chronic low back pain Discharge ED - Sign-Out/Discharge Documenting (check all that apply): Patient Departure All imaging exams completed and their final reports reviewed: Yes - Discharge Plan Condition: Stable Disposition: HOME Prescriptions: HYDROcodone/ACETAMIN 5-325 MG* [[place] 5-325 TAB*] 1 tab PO Q6H PRN #20 tab MDD 4 PRN Reason: Pain Patient Education Materials: Low Back Strain (ED), Chronic Back Pain (DC) Forms: *Work Release Referrals: [facility] [Outside] - 2 Days Fortunato Cotter MD [Primary Care Provider] - 1 Week Additional Instructions: XRAYS OF YOUR LUMBAR SPINE TODAY SHOW MILD SCOLIOSIS AND DEGENERATIVE DISK DISEASE. NO ACUTE INJURY. SHORT COURSE OF HYDROCODONE/APAP GIVEN TO HELP WITH YOUR ACUTE DISCOMFORT. BE AWARE THAT THIS IS NOT A GOOD L[facility] SOLUTION. PHYSICAL THERAPY REFERRAL ALSO PROVIDED YOU WOULD LIKELY BENEFIT FROM STRENGTHENING OF YOUR LOW BACK MUSCLES. FOLLOW-UP WITH ORTHO/SPORTS MED. AN MRI WOULD BE HELPFUL. BE SURE TO GO THROUGH SLOW RANGE OF MOTION AND STRETCHING EXERCISES DAILY YOU ARE ABLE TO PREVENT STIFFENING UP AND MAKING THE DISCOMFORT WORSE. GO TO THE ED WITHOUT FAIL IF YOU DEVELOP WORSENING NUMBNESS/TINGLING IN YOUR LEGS, NUMBNESS IN THE GENITAL REGION, LOSS OF BOWEL/BLADDER CONTROL, INTOLERABLE PAIN OR ANY OTHER CONCERNING SYMPTOMS. - Billing Disposition and Condition Condition: STABLE Disposition: Home
== END 2019-10-20 13:00 | disposition home or self-care (01) ==
LOC: UCEAST 11:07
DX: M54.5 Low back pain (principal); G89.29 Other chronic pain; M51.36 Other intervertebral disc degeneration, lumbar region; Z87.828 Personal history of other (healed) physical injury and trauma
CPT/HCPCS: 72100; 99211; G0463

== ENCOUNTER 2020-03-01 12:47 | Observation (INO) ==
[~2020-03-01 12:47] MED LIST: Buffered Lidocaine 1% SYRIN 1 ml INTRADERM ONE; Lactated Ringers 1000 ml BAG 1,000 ML IV SCH
[2020-03-01] MEDS ORDERED: Propofol 10 MG/ML 20 ML BTL ONE (13:02)
[2020-03-01] MEDS ORDERED: Succinylcholine 200 mg VIAL 20 mg/ml 10 ml VIAL (200 mg) ONE (13:02)
[2020-03-01] MEDS ORDERED: Midazolam 2 mg/2 ml VIAL 1 mg/ml 2 ml VIAL (2 mg) ONE (13:02)
[2020-03-01] MEDS ORDERED: Lidocaine 2% PF 5 ML VIAL ONE (13:02)
[2020-03-01] MEDS ORDERED: fentaNYL 250 mcg/5 ml 50 MCG/ML 5 ml VIAL (250 MCG) ONE (13:02)
[2020-03-01] MEDS ORDERED: ceFAZolin 2 GM PREMIX in ORs 2 GM/50 ML BAG ONE (13:31)
[2020-03-01] MEDS ORDERED: Bacitracin INJECTION 50,000 UNITS ONE (15:06)
[2020-03-01] MEDS ORDERED: Rocuronium 50 mg VIAL 10 mg/ml 5 ml VIAL (50 mg) ONE (15:14)
[2020-03-01] MEDS ORDERED: Dexamethasone IV 4 MG/ML VIAL 1 ml VIAL ONE (15:55)
[2020-03-01] MEDS ORDERED: HYDROmorphone 1 MG/1 ML SYRINGE ONE (16:21)
[2020-03-01] MEDS ORDERED: Ondansetron 4 mg VIAL 2 MG/ML 2 ml VIAL ONE (17:47)
[2020-03-01] MEDS ORDERED: HYDROcodone/ACETAMIN 5/325 mg TAB PO PRN ×2 (18:38)
[2020-03-01] MEDS ORDERED: Ondansetron 4 mg VIAL 2 MG/ML 2 ml VIAL IV PRN (18:38)
[2020-03-01] MEDS ORDERED: Magnesium Hydroxide LIQ 30 ML UDC PO PRN (18:38)
[2020-03-01] MEDS ORDERED: Naloxone 0.4 mg VIAL 0.4 mg/ml 1 ml VIAL IV PRN (18:41)
[2020-03-01] MEDS ORDERED: HYDROmorphone 1 MG/1 ML SYRINGE IV PRN (18:41)
[2020-03-02 10:37] VITALS: BP 157/90
== END 2020-03-02 10:50 | disposition home or self-care (01) ==
LOC: OR 12:47 → SSU 12:47
PROVIDERS: ADMIT Neurological Surgery; ATTEND Neurological Surgery

== ENCOUNTER 2021-04-05 05:40 | Observation (INO) ==
[~2021-04-05 05:40] MED LIST changes: +DiMENhydriNATE IV 50 mg/ml 1 ml VIAL IV PUSH ONE; +HYDROmorphone 1 MG/1 ML SYRINGE IV PRN; +Metoclopramide 5 MG/ML VIAL (10 mg) IV PRN; +Naloxone 0.4 mg VIAL 0.4 mg/ml 1 ml VIAL IV PRN; +Ondansetron 4 mg VIAL 2 MG/ML 2 ml VIAL IV PRN; +fentaNYL 100 mcg/2 ml 50 MCG/ML VIAL IV PRN
[2021-04-05] MEDS ORDERED: ceFAZolin 2 GM in NS PREMIX 2 GM/100 ML BAG IVPB ONE (06:16)
[2021-04-05] MEDS ORDERED: DiMENhydriNATE IV 50 mg/ml 1 ml VIAL ONE (06:16)
[2021-04-05] MEDS ORDERED: Buffered Lidocaine 1% SYRIN 1 ml INTRADERM ONE (06:16)
[2021-04-05] MEDS ORDERED: Midazolam 2 mg/2 ml VIAL 1 mg/ml 2 ml VIAL (2 mg) ONE (07:01)
[2021-04-05] MEDS ORDERED: fentaNYL 250 mcg/5 ml 50 MCG/ML 5 ml VIAL (250 MCG) ONE (07:01)
[2021-04-05] MEDS ORDERED: Rocuronium 50 mg VIAL 10 mg/ml 5 ml VIAL (50 mg) ONE (07:01)
[2021-04-05] MEDS ORDERED: Propofol 10 MG/ML 20 ML BTL ONE ×2 (07:03→08:06)
[2021-04-05] MEDS ORDERED: Ondansetron 4 mg VIAL 2 MG/ML 2 ml VIAL ONE (07:03)
[2021-04-05] MEDS ORDERED: Dexamethasone IV 4 MG/ML VIAL 1 ml VIAL ONE ×2 (07:03→08:35)
[2021-04-05] MEDS ORDERED: Lidocaine 2% PF 5 ML VIAL ONE (07:03)
[2021-04-05] MEDS ORDERED: fentaNYL 100 mcg/2 ml 50 MCG/ML VIAL ONE (07:05)
[2021-04-05] MEDS ORDERED: Bupivacaine 0.25% EPI 200,000 30 ML SDV ONE (07:06)
[2021-04-05] MEDS ORDERED: Artificial Tear OPHTH.OINT 3.5 GM ONE (07:15)
[2021-04-05] MEDS ORDERED: Propofol 10 mg/ml 100 ML BTL 0 ML ONE (07:15)
[2021-04-05] MEDS ORDERED: HYDROmorphone 1 MG/1 ML SYRINGE ONE (08:56)
[2021-04-05] MEDS ORDERED: Acetaminophen IV 1 GM/100ML 100 ML IV ONE (10:02)
[2021-04-05] MEDS ORDERED: Ondansetron 4 mg VIAL 2 MG/ML 2 ml VIAL IV PRN (11:38)
[2021-04-05] MEDS ORDERED: HYDROcodone/ACETAMIN 5/325 mg TAB PO PRN ×2 (11:38)
[2021-04-05] MEDS ORDERED: Magnesium Hydroxide LIQ 30 ML UDC PO PRN (11:38)
[2021-04-05] MEDS ORDERED: oxyCODONE/Acetamin 5/325 mg TAB PO PRN (13:57)
[2021-04-05] MEDS ORDERED: Morphine 2 MG/ML SYRINGE IV ONE (14:00)
[2021-04-05] MEDS: oxyCODONE/Acetamin 5/325 mg TAB PO PRN ×2 (15:58→21:08)
[2021-04-06] MEDS: oxyCODONE/Acetamin 5/325 mg TAB PO PRN ×3 (04:36→13:55)
[2021-04-06] MEDS ORDERED: Polyethylene Glycol 3350 17 GM PACKET PO PRN (09:14)
[2021-04-06 11:14] VITALS: BP 132/82
== END 2021-04-06 14:10 | disposition home or self-care (01) ==
LOC: OR 05:40 → SSU 05:40
PROVIDERS: ADMIT Neurological Surgery; ATTEND Neurological Surgery

== ENCOUNTER 2022-06-25 09:21 | Observation (INO) ==
[~2022-06-25 09:21] MED LIST changes: -DiMENhydriNATE IV 50 mg/ml 1 ml VIAL IV PUSH ONE; -HYDROmorphone 1 MG/1 ML SYRINGE IV PRN; -Metoclopramide 5 MG/ML VIAL (10 mg) IV PRN; +oxyCODONE/Acetamin 5/325 mg TAB PO PRN
[2022-06-25] MEDS ORDERED: Rocuronium 50 mg VIAL 10 mg/ml 5 ml VIAL (50 mg) ONE (09:25)
[2022-06-25] MEDS ORDERED: Midazolam 2 mg/2 ml VIAL 1 mg/ml 2 ml VIAL (2 mg) ONE (09:25)
[2022-06-25] MEDS ORDERED: fentaNYL 250 mcg/5 ml 50 MCG/ML 5 ml VIAL (250 MCG) ONE (09:26)
[2022-06-25] MEDS ORDERED: Ondansetron 4 mg VIAL 2 MG/ML 2 ml VIAL ONE (09:26)
[2022-06-25] MEDS ORDERED: Acetaminophen IV 1 GM/100ML 1,000 MG/100 ML BAG IV ONE (09:26)
[2022-06-25] MEDS ORDERED: Dexamethasone IV 4 MG/ML VIAL 1 ml VIAL ONE (09:26)
[2022-06-25] MEDS ORDERED: Lidocaine 2% PF 5 ML VIAL ONE (09:26)
[2022-06-25] MEDS ORDERED: ceFAZolin 2 GM PREMIX 2 GM/50 ML BAG ONE (09:38)
[2022-06-25] MEDS ORDERED: Phenylephrine 40 mcg/mL 10mL (400mcg) SYRINGE ONE (09:51)
[2022-06-25] MEDS ORDERED: ceFAZolin VIAL VIAL ONE (09:53)
[2022-06-25] MEDS ORDERED: Lidocaine 2% w EPI 1:100,000 20 ML MDV VIAL ONE (09:53)
[2022-06-25] MEDS ORDERED: Thrombin 5,000 UNITS 1 APPLIC KIT - topical use - TOPICAL ONE (09:53)
[2022-06-25] MEDS ORDERED: Gelfoam Sponge SIZE 100 SPONGE ONE (09:54)
[2022-06-25] MEDS ORDERED: Ondansetron 4 mg VIAL 2 MG/ML 2 ml VIAL IV PRN (13:29)
[2022-06-25] MEDS ORDERED: Morphine 2 MG/ML SYRINGE IV PRN (13:34)
[2022-06-25] MEDS ORDERED: Lactated Ringers 1000 ml BAG 1,000 ML IV SCH (14:00)
[2022-06-25] MEDS: HYDROcodone/ACETAMIN 5/325 mg TAB PO PRN (21:25)
[2022-06-26] MEDS: HYDROcodone/ACETAMIN 5/325 mg TAB PO PRN ×2 (04:14→10:48)
[2022-06-26 08:33] VITALS: BP 162/85
[2022-06-26] MEDS ORDERED: Fluticasone NASAL SPRAY 50MCG 16 gm SPRAY BTL INTRANASAL SCH (09:00)
== END 2022-06-26 10:55 | disposition home or self-care (01) ==
LOC: SSU 09:21 → OR 09:21
PROVIDERS: ADMIT Neurological Surgery; ATTEND Neurological Surgery